=== PATIENT | male | born 1945 | race Caucasian/White ===

== ENCOUNTER 2020-05-28 12:46 | Inpatient (IN) ==
[2020-05-29] MEDS ORDERED: ALPRAZolam 0.25 MG TABLET PO PRN (12:17)
[2020-05-29] MEDS ORDERED: *HR* OxyCODONE/APAP 5/325 TABLET PO PRN (12:39)
[2020-05-29] MEDS ORDERED: D5% in Water 1,000 ML IVC PRN (13:06)
[2020-05-29] MEDS ORDERED: Dextrose Gel 15 GM/37.5 ML TUBE PO PRN ×2 (13:06)
[2020-05-29] MEDS ORDERED: *HR* Dextrose 50 % in Water (Vial) 50 ML VIAL IVP PRN (13:06)
[2020-05-29] MEDS: Insulin LISPRO 300 UNITS/3 ML VIAL SQ SCH ×2 (17:30→22:02)
[2020-05-29] MEDS: Famotidine 20 MG TABLET PO SCH ×2 (17:47→22:02)
[2020-05-29] MEDS ORDERED: Insulin DETEMIR 100 UNIT/ML X5UNITS SQ SCH (21:00)
[2020-05-29] MEDS: hydrALAZINE 25 MG TABLET PO SCH (21:59)
[2020-05-29] MEDS: Insulin DETEMIR 100 UNIT/ML X5UNITS SQ SCH (22:02)
[2020-05-30 05:02] LABS: Basophils # 0.1 K/mcL (0.0-0.2); Basophils % 0.6 %; Eosinophils # 0.2 K/mcL (0.0-0.6); Eosinophils % 1.9 %; Hematocrit 41.3 % (37.5-50.1); Hemoglobin 13.9 g/dL (12.9-16.9); Immature Granulocytes % 0.4 % (0-4); Lymphocytes # 1.7 K/mcL (0.6-4.6); Lymphocytes % 22.1 %; Mean Corpuscular HGB Conc 33.7 g/dL (31.6-35.5); Mean Corpuscular Hemoglobin 31.7 pg (28.0-33.3); Mean Corpuscular Volume 94.1 fL (83.0-100.0); Mean Platelet Volume 11.9 fL (9.4-12.4); Monocytes # 0.7 K/mcL (0.0-1.3); Monocytes % 8.5 %; Neutrophils # 5.2 K/mcL (1.6-8.9); Platelet Count 166 K/mcL (140-400); Red Blood Count 4.39 M/mcL (4.19-5.50); Red Cell Distribution Width 13.2 % (11.5-14.5); Segmented Neutrophils % 66.5 %; White Blood Count 7.8 K/mcL (4.3-11.1)
[2020-05-30 05:16] LABS: BUN/Creatinine Ratio 19 (6-26); Blood Urea Nitrogen 25 mg/dL (8-23); Calcium 9.3 mg/dL (8.6-10.3); Carbon Dioxide 29 mEq/L (23-29); Chloride 104 mEq/L (98-107); Glucose 71 mg/dL (70-105); Osmolality,Calculated 293 (280-300); Potassium 3.9 mEq/L (3.5-5.1); Sodium 140 mEq/L (136-145); eGFR For African Americans > 60 (> 60); eGFR For Non-African Americans 54 (> 60)
[2020-05-30] MEDS: Levothyroxine 25 MCG TABLET PO SCH (05:37)
[2020-05-30] MEDS: *HR* Enoxaparin 40 MG/0.4 ML SYRINGE SQ SCH (05:37)
[2020-05-30] MEDS: Acetaminophen 325 MG TABLET PO PRN (05:40)
[2020-05-30] MEDS: allopurinoL 300 MG TABLET PO SCH (08:40)
[2020-05-30] MEDS: Insulin LISPRO 300 UNITS/3 ML VIAL SQ SCH ×4 (08:40→20:30)
[2020-05-30] MEDS: hydrALAZINE 25 MG TABLET PO SCH ×2 (08:40→20:41)
[2020-05-30 08:44] LABS: Estimated Average Glucose 183 mg/dl
[2020-05-30] MEDS ORDERED: Aspirin Enteric Coated 81 MG Tablet PO SCH (09:00)
[2020-05-30] MEDS: Insulin DETEMIR 100 UNIT/ML X5UNITS SQ SCH ×2 (11:06→20:42)
[2020-05-30] MEDS ORDERED: lisinopriL 20 MG TABLET PO SCH (18:00)
[2020-05-30] MEDS ORDERED: Baclofen 10 MG TABLET PO SCH (18:00)
[2020-05-30] MEDS: Aspirin Enteric Coated 81 MG Tablet PO SCH (20:41)
[2020-05-30] MEDS: lisinopriL 20 MG TABLET PO SCH (20:42)
[2020-05-30] MEDS: Baclofen 10 MG TABLET PO SCH (20:42)
[2020-05-30] MEDS: Famotidine 20 MG TABLET PO SCH (20:42)
[2020-05-31] MEDS: *HR* Enoxaparin 40 MG/0.4 ML SYRINGE SQ SCH (05:58)
[2020-05-31] MEDS: Acetaminophen 325 MG TABLET PO PRN ×2 (05:59→21:10)
[2020-05-31] MEDS: Levothyroxine 25 MCG TABLET PO SCH (05:59)
[2020-05-31] MEDS: Insulin LISPRO 300 UNITS/3 ML VIAL SQ SCH ×4 (08:18→21:02)
[2020-05-31] MEDS: hydrALAZINE 25 MG TABLET PO SCH ×2 (08:20→21:02)
[2020-05-31] MEDS: allopurinoL 300 MG TABLET PO SCH (08:20)
[2020-05-31] MEDS: Insulin DETEMIR 100 UNIT/ML X5UNITS SQ SCH ×2 (10:04→21:02)
[2020-05-31] MEDS: Famotidine 20 MG TABLET PO SCH (21:01)
[2020-05-31] MEDS: Aspirin Enteric Coated 81 MG Tablet PO SCH (21:02)
[2020-05-31] MEDS: lisinopriL 20 MG TABLET PO SCH (21:02)
[2020-05-31] MEDS: Baclofen 10 MG TABLET PO SCH (21:02)
[2020-06-01] MEDS: Levothyroxine 25 MCG TABLET PO SCH (05:45)
[2020-06-01] MEDS: *HR* Enoxaparin 40 MG/0.4 ML SYRINGE SQ SCH (05:45)
[2020-06-01] MEDS: hydrALAZINE 25 MG TABLET PO SCH ×2 (08:10→20:13)
[2020-06-01] MEDS: allopurinoL 300 MG TABLET PO SCH (08:10)
[2020-06-01] MEDS: Acetaminophen 325 MG TABLET PO PRN (08:10)
[2020-06-01] MEDS: Insulin LISPRO 300 UNITS/3 ML VIAL SQ SCH ×4 (08:11→20:12)
[2020-06-01] MEDS: Insulin DETEMIR 100 UNIT/ML X5UNITS SQ SCH ×2 (08:44→20:14)
[2020-06-01] MEDS ORDERED: MOM Conc 10 ML UD.LIQ PO PRN (15:32)
[2020-06-01] MEDS: Baclofen 10 MG TABLET PO SCH ×2 (16:28→20:14)
[2020-06-01] MEDS: lisinopriL 20 MG TABLET PO SCH (20:13)
[2020-06-01] MEDS: Aspirin Enteric Coated 81 MG Tablet PO SCH (20:13)
[2020-06-01] MEDS: Famotidine 20 MG TABLET PO SCH (20:14)
[2020-06-02] MEDS: *HR* Enoxaparin 40 MG/0.4 ML SYRINGE SQ SCH (05:20)
[2020-06-02] MEDS: Levothyroxine 25 MCG TABLET PO SCH (05:20)
[2020-06-02] MEDS: Insulin DETEMIR 100 UNIT/ML X5UNITS SQ SCH ×2 (08:16→21:53)
[2020-06-02] MEDS: hydrALAZINE 25 MG TABLET PO SCH ×2 (08:16→21:50)
[2020-06-02] MEDS: Acetaminophen 325 MG TABLET PO PRN ×2 (08:16→21:45)
[2020-06-02] MEDS: Baclofen 10 MG TABLET PO SCH ×3 (08:16→21:50)
[2020-06-02] MEDS: allopurinoL 300 MG TABLET PO SCH (08:16)
[2020-06-02] MEDS: Insulin LISPRO 300 UNITS/3 ML VIAL SQ SCH ×4 (10:52→21:54)
[2020-06-02] MEDS: Famotidine 20 MG TABLET PO SCH (21:48)
[2020-06-02] MEDS: Aspirin Enteric Coated 81 MG Tablet PO SCH (21:49)
[2020-06-02] MEDS: lisinopriL 20 MG TABLET PO SCH (21:50)
[2020-06-03] MEDS: *HR* Enoxaparin 40 MG/0.4 ML SYRINGE SQ SCH (04:13)
[2020-06-03] MEDS: Levothyroxine 25 MCG TABLET PO SCH (04:14)
[2020-06-03] MEDS: Insulin LISPRO 300 UNITS/3 ML VIAL SQ SCH ×4 (07:49→22:23)
[2020-06-03] MEDS: allopurinoL 300 MG TABLET PO SCH (09:03)
[2020-06-03] MEDS: Acetaminophen 325 MG TABLET PO PRN ×2 (09:04→22:42)
[2020-06-03] MEDS: Insulin DETEMIR 100 UNIT/ML X5UNITS SQ SCH ×2 (09:04→22:45)
[2020-06-03] MEDS: Baclofen 10 MG TABLET PO SCH ×3 (09:12→22:40)
[2020-06-03] MEDS: hydrALAZINE 10 MG TABLET PO SCH ×3 (09:51→22:41)
[2020-06-03] MEDS: lisinopriL 20 MG TABLET PO SCH (22:41)
[2020-06-03] MEDS: Aspirin Enteric Coated 81 MG Tablet PO SCH (22:41)
[2020-06-03] MEDS: Famotidine 20 MG TABLET PO SCH (22:41)
[2020-06-04 05:27] LABS: Hematocrit 37.2 % (37.5-50.1); Mean Corpuscular HGB Conc 33.1 g/dL (31.6-35.5); Mean Corpuscular Hemoglobin 31.1 pg (28.0-33.3); Mean Corpuscular Volume 94.2 fL (83.0-100.0); Mean Platelet Volume 12.8 fL (9.4-12.4); Platelet Count 133 K/mcL (140-400); Red Blood Count 3.95 M/mcL (4.19-5.50); Red Cell Distribution Width 12.9 % (11.5-14.5)
[2020-06-04 05:31] LABS: Hemoglobin 12.3 g/dL (12.9-16.9)
[2020-06-04 05:41] LABS: Alanine Aminotransferase 27 Units/L (7-52); Albumin 3.5 g/dL (3.5-5.7); Albumin/Globulin Ratio 1.5 (1.1-2.2); Alkaline Phosphatase 81 Units/L (34-104); Aspartate Amino Transferase 18 Units/L (13-39); BUN/Creatinine Ratio 20 (6-26); Bilirubin,Total 0.3 mg/dL (0.3-1.0); Blood Urea Nitrogen 25 mg/dL (8-23); Calcium 9.2 mg/dL (8.6-10.3); Carbon Dioxide 26 mEq/L (23-29); Chloride 106 mEq/L (98-107); Globulin 2.3 g/dL (2.4-3.5); Glucose 175 mg/dL (70-105); Magnesium 1.6 mg/dL (1.6-2.6); Osmolality,Calculated 299 (280-300); Potassium 4.5 mEq/L (3.5-5.1); Sodium 140 mEq/L (136-145); Total Protein 5.8 g/dL (6.4-8.9); eGFR For African Americans > 60 (> 60); eGFR For Non-African Americans 58 (> 60)
[2020-06-04] MEDS: Acetaminophen 325 MG TABLET PO PRN ×2 (06:54→21:14)
[2020-06-04] MEDS: Levothyroxine 25 MCG TABLET PO SCH (06:54)
[2020-06-04] MEDS: *HR* Enoxaparin 40 MG/0.4 ML SYRINGE SQ SCH (06:55)
[2020-06-04] MEDS: Baclofen 10 MG TABLET PO SCH ×3 (08:21→21:13)
[2020-06-04] MEDS: allopurinoL 300 MG TABLET PO SCH (08:21)
[2020-06-04] MEDS: Insulin LISPRO 300 UNITS/3 ML VIAL SQ SCH ×4 (08:21→21:17)
[2020-06-04] MEDS: hydrALAZINE 10 MG TABLET PO SCH ×3 (08:21→21:16)
[2020-06-04] MEDS: Insulin DETEMIR 100 UNIT/ML X5UNITS SQ SCH ×2 (08:22→21:17)
[2020-06-04] MEDS: Famotidine 20 MG TABLET PO SCH (21:13)
[2020-06-04] MEDS: lisinopriL 20 MG TABLET PO SCH (21:14)
[2020-06-04] MEDS: Aspirin Enteric Coated 81 MG Tablet PO SCH (21:15)
[2020-06-05] MEDS: Acetaminophen 325 MG TABLET PO PRN ×2 (05:52→21:28)
[2020-06-05] MEDS: *HR* Enoxaparin 40 MG/0.4 ML SYRINGE SQ SCH (05:52)
[2020-06-05] MEDS: Levothyroxine 25 MCG TABLET PO SCH (05:52)
[2020-06-05] MEDS: hydrALAZINE 10 MG TABLET PO SCH ×3 (08:33→21:28)
[2020-06-05] MEDS: allopurinoL 300 MG TABLET PO SCH (08:33)
[2020-06-05] MEDS: Insulin LISPRO 300 UNITS/3 ML VIAL SQ SCH ×4 (08:33→21:32)
[2020-06-05] MEDS: Baclofen 10 MG TABLET PO SCH ×3 (08:33→21:28)
[2020-06-05] MEDS: Insulin DETEMIR 100 UNIT/ML X5UNITS SQ SCH ×2 (08:34→21:32)
[2020-06-05] MEDS: Famotidine 20 MG TABLET PO SCH (21:26)
[2020-06-05] MEDS: Aspirin Enteric Coated 81 MG Tablet PO SCH (21:27)
[2020-06-05] MEDS: lisinopriL 20 MG TABLET PO SCH (21:28)
[2020-06-06] MEDS: *HR* Enoxaparin 40 MG/0.4 ML SYRINGE SQ SCH (05:03)
[2020-06-06] MEDS: Levothyroxine 25 MCG TABLET PO SCH (05:03)
[2020-06-06] MEDS: Acetaminophen 325 MG TABLET PO PRN (05:03)
[2020-06-06] MEDS: hydrALAZINE 10 MG TABLET PO SCH ×3 (08:19→20:54)
[2020-06-06] MEDS: Baclofen 10 MG TABLET PO SCH ×3 (08:19→20:55)
[2020-06-06] MEDS: allopurinoL 300 MG TABLET PO SCH (08:19)
[2020-06-06] MEDS: Insulin DETEMIR 100 UNIT/ML X5UNITS SQ SCH ×2 (08:20→20:56)
[2020-06-06] MEDS: Insulin LISPRO 300 UNITS/3 ML VIAL SQ SCH ×4 (08:20→20:56)
[2020-06-06] MEDS: Aspirin Enteric Coated 81 MG Tablet PO SCH (20:53)
[2020-06-06] MEDS: lisinopriL 20 MG TABLET PO SCH (20:54)
[2020-06-06] MEDS: Famotidine 20 MG TABLET PO SCH (20:55)
[2020-06-07] MEDS: Levothyroxine 25 MCG TABLET PO SCH (03:06)
[2020-06-07] MEDS: Acetaminophen 325 MG TABLET PO PRN ×2 (03:06→20:32)
[2020-06-07] MEDS: *HR* Enoxaparin 40 MG/0.4 ML SYRINGE SQ SCH (03:07)
[2020-06-07] MEDS: Insulin LISPRO 300 UNITS/3 ML VIAL SQ SCH ×4 (07:49→20:27)
[2020-06-07] MEDS: allopurinoL 300 MG TABLET PO SCH (08:01)
[2020-06-07] MEDS: Insulin DETEMIR 100 UNIT/ML X5UNITS SQ SCH ×2 (08:01→20:27)
[2020-06-07] MEDS: Baclofen 10 MG TABLET PO SCH ×3 (08:01→20:28)
[2020-06-07] MEDS: hydrALAZINE 10 MG TABLET PO SCH ×3 (08:01→20:28)
[2020-06-07] MEDS: Famotidine 20 MG TABLET PO SCH (20:28)
[2020-06-07] MEDS: lisinopriL 20 MG TABLET PO SCH (20:28)
[2020-06-07] MEDS: Aspirin Enteric Coated 81 MG Tablet PO SCH (20:29)
[2020-06-08] MEDS: Levothyroxine 25 MCG TABLET PO SCH (05:26)
[2020-06-08] MEDS: *HR* Enoxaparin 40 MG/0.4 ML SYRINGE SQ SCH (05:26)
[2020-06-08 07:32] VITALS: BP 123/58
[2020-06-08] MEDS: Baclofen 10 MG TABLET PO SCH (08:18)
[2020-06-08] MEDS: allopurinoL 300 MG TABLET PO SCH (08:18)
[2020-06-08] MEDS: Insulin LISPRO 300 UNITS/3 ML VIAL SQ SCH (08:19)
[2020-06-08] MEDS: hydrALAZINE 10 MG TABLET PO SCH (08:19)
[2020-06-08] MEDS: Acetaminophen 325 MG TABLET PO PRN (08:21)
[2020-06-08] MEDS: Insulin DETEMIR 100 UNIT/ML X5UNITS SQ SCH (08:22)
[2020-06-08] MEDS ORDERED: FLU Vac QV 20-21 (6Month+)/PF 0.5 ML SYRINGE IM ONE (10:08)
== END 2020-06-08 11:18 | disposition home or self-care (01) | DRG 57 ==
LOC: INPGRE 05-29 11:13
PROVIDERS: ADMIT Family Medicine; ATTEND Family Medicine